=== PATIENT | female | born 1955 | race Caucasian/White ===

== ENCOUNTER 2025-03-28 19:51 | Emergency (ER) | payer MEDICARE, OTHER, SELFPAY ==
--- OUTSIDE RECORDS SUMMARY | 2022-05-19 10:30 | XMS_ITS | Continuity of Care Document ---
Author Organization [facility] Address [address] [place] [address] [address] [place] [address] Phone Care Team Providers Care Grain Operations Manager Name Role Phone Becka Arellano Unavailable Unavailab le Advance Directives Directive Yes / No Effective Date File Name No Information Encounters Encounter Description Practice Location Reason(s) For Visit Diagnoses Date Provider Providers Copied on Encounter [facility], [address], [place], [id number], tel:[phone] [facility] / [facility]ins - (Telangiect ibeth) Bertha Jovel. [address] , [address], [place], [place], [id number], [place]. tel:[phone] Referring Provider: Becka Munson, [address], [place], [address]. tel:[phone] Family History Family Member Type Diagnosis Age At Onset No Information Payers Payer name Insurance type Covered republican ID Authoriza tion(s) No Information Social History Type Description Quantity Date Captured Comments Sex Female Smoking Status No Information Chief Complaint And Reason For Visit No Information Reason For Referral Reason For Referral No Information History Of Present Illness Encounter Date Complaint History Of Prese nt Illness No Information Functional Status Date Functional Assessmen t No Information Instructions Date Instruction Additional Infor mation No Information Assessments Type Assessment Date assessment Spider Veins - (Telangiectasia) Patient Care Teams Name Effective Dates (start - stop) Status Members No Information
--- OUTSIDE RECORDS SUMMARY | 2023-11-16 05:15 | XMS_ITS | Continuity of Care Document ---
Author Organization [facility] o Address [address] [place] [address] Phone Care Team Providers Care Corporate Sales Representative Name Role Phone Noah Ozuna MD Unavailable Unavailable Procedures Procedure Date Initial hospital care, moderate 024 Followup hospital care, moderate 2023 Advance Directives Directive Yes / No Effective Date File Name No Information Encounters Encounter Description Practice Location Reason(s) For Visit Diagnoses Date Provider Providers Copied on Encounter [facility], [facility] [address] [place], [place], [facility][note 3], tel:[phone] No Information Mar-0 4 Laith Zamora. [address], [facility] [place] [address], [place], [id number] , [place]. tel:[phone] Initial hospital care, moderate [facility], [facility] [address] [place], [place], [facility][note 3], tel:[phone] [facility] No Information Nov-0 4 Laith Zamora. [address], [address], [place], [place], [id number] , [place]. tel:[phone] Referring Provider: Deysi Maldonado, [address] [place], [address]. tel:[phone] Family History Family Member Type Diagnosis Age At Onset No Information Payers Payer name Insurance type Covered democrat ID Authoriza tion(s) No Information Social History [...] mation No Information Assessments Type Assessment Date No Information Patient Care Teams Name Effective Dates (start - stop) Status Members No Information
--- OUTSIDE RECORDS SUMMARY | 2025-03-28 19:58 | XMS_ITS | Encounter Summary ---
Author Organization [facility] Address [address] [place] [address] Care Team Providers Care Resident Caregiver Name Role Phone Laurel Laguerre MD Primary Care Provider [phone] Monse Ronquillo NP Unavailable Laurel Laguerre MD Unavailable Laurel Laguerre MD Unavailable Encounter Details Date Type Department Care Team (Late Contact Info) Description 06/10/2023 Abstract [facility] [address] [place] [phone] Laurel Laguerre MD Social History Tobacco Use Types Packs/Day Years Used Date Smoking Tobacco: Never Smokeless Tobacco: Never Alcohol Use Standard Drinks/Week Comments Not Currently 0 (1 standard drink = 0.6 oz pur e alcohol) Comments Unknown Sex and Gender Information Value Date Recorded Sex Assigned at Not on file Legal Sex Female 6:33 PM EDT Gender Identity Not on file Sexual Orientation Not on file documented as of this encounter Plan of Treatment Upcoming Encounters Date Type Department Care Team (Late Contact Info) Description 04/01/2025 1:30 PM EDT [facility] [address] [place] [phone] Monse Ronquillo NP [address] [place] [id number] 08/16/2025 8:30 AM EST Office Visit [facility] [address] [place] [address] Monse Ronquillo NP [address] [place] [id number] documented as of this encounter Visit Diagnoses Not on filedocumented in this encounter Care Teams Resident Caregiver Relationship Specialty Start Date End Date Laurel Laguerre MD PCP - General Family Medicine 01/31/23 Laurel Laguerre MD PCP - ACO Reach 02/03/23 10/18/24 Laurel Laguerre MD PCP - ACO Reach 10/26/24 12/13/24 Monse Ronquillo NP [address] [place] [place] [id number] Nurse Practitioner Family Medicine 01/31/23 documented as of this encounter
--- OUTSIDE RECORDS SUMMARY | 2025-03-28 19:58 | XMS_ITS | Encounter Summary ---
Author Organization [facility] tem Address [id number] [address] [place] [address] Care Team Providers Care Internal Communications Writer Name Role Phone Laurel Laguerre MD Primary Care Provider [phone] Encounter Details Date Type Department Care Team (Late st Contact Info) Description 06/18/2022 Orders Only [facility] [address] [place] [phone] External, Scanning Provider Social History Tobacco Use Types Packs/Day Years Used Date Smoking Tobacco: Never Assessed Childcare Answer Date Recorded Childcare Unknown 02/21/2019 Employment Answer Date Recorded Employment Unknown 02/21/2019 Comments Unknown Sex and Gender Information Value Date Recorded Sex Assigned at Not on file Legal Sex Female 11:34 AM EDT Gender Identity Not on file Sexual Orientation Not on file documented as of this encounter Plan of Treatment Not on file documented as of this encounter Procedures Procedure Name Priority Date/Time Associated Diagnosis Comments LIPID PROFILE Routine 06/14/2022 LIPID PROFILE Routine 09/07/2021 documented in this encounter Results * Lipid profile (06/14/2022) External Cholesterol 216 MANUALLY TRANSCRIBED RESULTS External Cholesterol:Hdl 3.2 MANUALLY TRANSCRIBED RESULTS External Hdl Cholesterol 68 MANUALLY TRANSCRIBED RESULTS External Ldl (Calc) 128 MANUALLY TRANSCRIBED RESULTS External Triglycerides 92 MANUALLY TRANSCRIBED RESULTS Non HDL Chol. (LDL+VLDL) 148 MANUALLY TRANSCRIBED RESULTS 06/14/2022 us Scanning Provider External LAB BLOOD ORDERABLES Final Result Performing Organization Address City/[facility] Co de Phone Number MANUALLY TRANSCRIBED RESULTS * Lipid profile (09/07/2021) External Cholesterol 236 MANUALLY TRANSCRIBED RESULTS External Cholesterol:Hdl 4 MANUALLY TRANSCRIBED RESULTS External Hdl Cholesterol 66 MANUALLY TRANSCRIBED RESULTS External Ldl (Calc) 149 MANUALLY TRANSCRIBED RESULTS External Triglycerides 103 MANUALLY TRANSCRIBED RESULTS External Very Low Lipoprotein 21 MANUALLY TRANSCRIBED RESULTS 09/07/2021 us Scanning Provider External LAB BLOOD ORDERABLES Final Result Performing Organization Address [facility] Co de Phone Number MANUALLY TRANSCRIBED RESULTS documented in this encounter Visit Diagnoses Not on filedocumented in this encounter Care Teams Internal Communications Writer Relationship Specialty Start Date End Date Laurel Laguerre MD [address] [place] [address] PCP - General Family Medicine 10/30/21 documented as of this encounter
--- OUTSIDE RECORDS SUMMARY | 2025-03-28 19:58 | XMS_ITS | Encounter Summary ---
Author Organization [facility] Address [address] [place] [address] Care Team Providers Care Clinical Administrative Coordinator Name Role Phone Laurel Laguerre MD Primary Care Provider Monse Ronquillo NP Unavailable Laurel Laguerre MD Unavailable Laurel Laguerre MD Unavailable Encounter Details Date Type Department Care Team (Late st Contact Info) Description 03/22/2023 Abstract [facility] [address] [place] [address] Laurel Laguerre MD Social History Tobacco Use [...] on file Sexual Orientation Not on file COVID-19 Exposure Response Date Recorded In the last 10 days, have yo u been in contact with someone who was confirmed or suspected to have Coronavirus/COVID-19? No / Unsure 03/01/2023 8:52 AM EDT documented as of this encounter Plan of Treatment Upcoming Encounters Date Type Department Care Team (Late st Contact Info) Description 04/01/2025 1:30 PM EDT Office Visit [facility] [address] [place] [phone] Monse Ronquillo NP [address] [place] [address] 08/16/2025 8:30 AM EST Office Visit [facility] [address] [place] [phone] Monse Ronquillo NP [address] [place] [address] documented as of this encounter Visit Diagnoses Not on filedocumented in this encounter Care Teams Clinical Administrative Coordinator Relationship Specialty Start Date End Date Laurel Laguerre MD PCP - General Family Medicine 01/31/23 Laurel Laguerre MD PCP - ACO Reach 02/03/23 10/18/24 Laurel Laguerre MD PCP - ACO Reach 10/26/24 12/13/24 Monse Ronquillo NP [address] [place] [place] [phone] Nurse Practitioner Family Medicine 01/31/23 documented as of this encounter
--- OUTSIDE RECORDS SUMMARY | 2025-03-28 19:58 | XMS_ITS | Encounter Summary ---
Author Organization [facility] Address [address] [place] [address] Care Team Providers Care Relay Tester Name Role Phone Laurel Laguerre MD Primary Care Provider Monse Ronquillo NP Unavailable Laurel Laguerre MD Unavailable Laurel Laguerre MD Unavailable Encounter Details Date Type Department Care Team (Late st Contact Info) Description 02/24/2023 Abstract [facility] [address] [place] [address] Parul Suero, DPM [address] [place], [place] [phone] Social History Tobacco Use Types Packs/Day Years [...] EDT Office Visit [facility] [address] [place] [phone] Monse Ronquillo NP [address] [place] [address] 08/16/2025 8:30 AM EST Office Visit [facility] [address] [place] [address] Monse Ronquillo NP [address] [place] [address] documented as of this encounter Visit Diagnoses Not on filedocumented in this encounter Care Teams Relay Tester Relationship Specialty Start Date End Date Laurel Laguerre MD PCP - General Family Medicine 01/31/23 Laurel Laguerre MD PCP - ACO Reach 02/03/23 10/18/24 Laurel Laguerre MD PCP - ACO Reach 10/26/24 12/13/24 Monse Ronquillo NP [address] [place] [place] [phone] Nurse Practitioner Family Medicine 01/31/23 documented as of this encounter
--- OUTSIDE RECORDS SUMMARY | 2025-03-28 19:58 | XMS_ITS | Encounter Summary ---
Author Organization [facility] Address [address] [place] [address] Care Team Providers Care Project Analyst Name Role Phone Laurel Laguerre MD Primary Care Provider Monse Ronquillo NP Unavailable Laurel Laguerre MD Unavailable [phone] Laurel Laguerre MD Unavailable Encounter Details Date Type Department Care Team (Late st Contact Info) Description 05/26/2023 Abstract [facility] [address] [place] [address] Lady Ferrera NP Social History Tobacco Use Types Packs/Day Years [...] 04/01/2025 1:30 PM EDT Office Visit [facility] [address] [place] [address] Monse Ronquillo NP [address] [place] [id number] 08/16/2025 8:30 AM EST Office Visit [facility] [address] [place] [address] Monse Ronquillo NP [address] [place] [id number] documented as of this encounter Visit Diagnoses Not on filedocumented in this encounter Care Teams Project Analyst Relationship Specialty Start Date End Date Laurel Laguerre MD PCP - General Family Medicine 01/31/23 Laurel Laguerre MD PCP - ACO Reach 02/03/23 10/18/24 Laurel Laguerre MD PCP - ACO Reach 10/26/24 12/13/24 Monse Ronquillo NP [address] [place] [id number] Nurse Practitioner Family Medicine 01/31/23 documented as of this encounter
--- OUTSIDE RECORDS SUMMARY | 2025-03-28 19:58 | XMS_ITS | Encounter Summary ---
Author Organization [facility] Address [id number] [address] [place] [address] Care Team Providers Care Waitress Name Role Phone Laurel Laguerre MD Primary Care Provider [phone] Encounter Details Date Type Department Care Team (Late st Contact Info) Description 08/09/2022 Orders Only [facility] [address] [place] [address] External, Scanning Provider Social History Tobacco Use Types Packs/Day Years Used Date Smoking Tobacco: Never Smokeless Tobacco: Never Alcohol Use Standard Drinks/Week Comments Not Currently 0 (1 standard drink = 0.6 oz pur e alcohol) Childcare Answer Date Recorded Childcare Unknown 02/21/2019 Employment Answer Date Recorded Employment Unknown 02/21/2019 Comments Unknown Sex and Gender Information Value Date Recorded Sex Assigned at Not on file Legal Sex Female 11:34 AM EDT Gender Identity Not on file Sexual Orientation Not on file COVID-19 Exposure Response Date Recorded In the last month, have you been in contact with someone who was confirmed or suspected to have Coronavirus / COVID-19? No / Unsure 07/26/2022 1:31 PM EST documented as of this encounter Plan of Treatment Not on file documented as of this encounter Visit Diagnoses Not on filedocumented in this encounter Care Teams Waitress Relationship Specialty Start Date End Date Laurel Laguerre MD [address] [place] [address] PCP - General Family Medicine 10/30/21 documented as of this encounter
--- OUTSIDE RECORDS SUMMARY | 2025-03-28 19:58 | XMS_ITS | Encounter Summary ---
Author Organization [facility] Address [address] [place] [address] Care Team Providers Care Shell Worker Name Role Phone Laurel Laguerre MD Primary Care Provider Monse Ronquillo NP Unavailable [phone] Laurel Laguerre MD Unavailable [phone] Laurel Laguerre MD Unavailable [phone] Encounter Details Date Type Department Care Team (Late st Contact Info) Description 11/18/2023 Orders Only [facility] [address] [place] [address] Duran Nicole DO [address] [place] [address] Social History Tobacco Use Types Packs/Day Years Used Date Smoking Tobacco: Never Smokeless Tobacco: Never Alcohol Use Standard Drinks/Week Comments Never 0 (1 standard drink = 0.6 oz pur e alcohol) Humiliation, Afraid, Rape, and Kick questionnair e Answer Date Recorded Within the last year, have y ou been afraid of your partner or ex-partner? No 08/09/2023 Within the last year, have y ou been humiliated or emotionally abused in other ways by your partner or ex-partner? No Within the last year, have y ou been kicked, hit, slapped, or otherwise physically hurt by your partner or ex-partner? No 08/09/2023 Within the last year, have y ou been raped or forced to have any kind of sexual activity by your partner or ex-partner? No 08/09/2023 Social Connection and Isolation Panel [NHANES] A nswer Date Recorded In a typical week, how many times do you talk on the phone with family, friends, or neighbors? Once a week 08/09/2023 How often do you get together with friends or re latives? Once a week 08/09/2023 How often do you attend buddhism or protestant serv ices? Never 08/09/2023 Do you belong to any clubs o r organizations such as buddhism groups, unions, fraternal or athletic groups, or school groups? No 08/09/2023 How often do you attend meet ings of the clubs or organizations you belong to? Never 08/09/2023 Are you , , di vorced, , never , or living with a partner? 08/09/2023 AUDIT-C Answer Date Recorded Q1: How often do you have a drink containing alcohol? Never 08/16/2023 Q2: How many drinks containi ng alcohol do you have on a typical day when you are drinking? Patient does not drink Q3: How often do you have si x or more drinks on one occasion? Never 08/16/2023 Overall Financial Resource Strain (CARDIA) Answe r Date Recorded How hard is it for you to pa y for the very basics like food, housing, medical care, and heating? Not very hard 08/09/2023 PHQ-2 Answer Date Recorded Patient Health Questionnaire-2 Score 1 08/16/2023 [facility] [place] [facility] Occupat ional Health - Occupational Stress Questionnaire Answer Date Recorded Do you feel stress - tense, restless, nervous, or anxious, or unable to sleep at night because your mind is troubled all the time - these days? Not at all 08/09/2023 Exercise Vital Sign Answer Date Recorde d On average, how many days pe r week do you engage in moderate to strenuous exercise (like a brisk walk)? 1 day 08/09/2023 On average, how many minutes do you engage in exercise at this level? 20 min 08/09/2023 Hunger Vital Sign Answer Date Recorded Within the past 12 months, y ou worried that your food would run out before you got the money to buy more. Never true 08/09/20 23 Within the past 12 months, t he food you bought just didn't last and you didn't have money to get more. Never true 08/09/2023 PRAPARE - Transportation Answer Date Re corded In the past 12 months, has l ack of transportation kept you from medical appointments or from getting medications? No 07/14 In the past 12 months, has l ack of transportation kept you from meetings, work, or from getting things needed for daily living? No 08/09/2023 Housing Stability Vital Sign Answer Joe e Recorded In the last 12 months, was t here a time when you were not able to pay the mortgage or rent on time? No 08/09/2023 In the last 12 months, how many places have you lived? 1 08/09/2023 In the last 12 months, was t here a time when you did not have a steady place to sleep or slept in a halfway (including now)? No 08/09/2023 Comments Unknown Sex and Gender Information Value Date Recorded Sex Assigned at Not on file Legal Sex Female 6:33 PM EDT Gender Identity Not on file Sexual Orientation Not on file documented as of this encounter Plan of Treatment Upcoming Encounters Date Type Department Care Team (Late st Contact Info) Description 04/01/2025 1:30 PM EDT Office Visit [facility] [address] [place] [phone] Monse Ronquillo NP [address] [place] [address] 08/16/2025 8:30 AM EST Office Visit [facility] [address] [facility] [place] [address] Monse Ronquillo NP [address] [facility] [place], [place] [phone] documented as of this encounter Procedures Procedure Name Priority Date/Time Associated Diagnosis Comments COLONOSCOPY Routine 10/17/2023 1:19 PM EST documented in this encounter Results * Hm Colonoscopy (10/17/2023 1:19 PM EST) Anatomical Region Laterality Modality Other Duran Nicole DO HEALTH MAINTENANCE Final Resu lt documented in this encounter Visit Diagnoses Not on filedocumented in this encounter Additional Health Concerns Assessment Noted Time PHQ-9 Depression Total Score: 1 08/16/20 1:00 PM EST documented as of this encounter Care Teams Shell Worker Relationship Specialty Start Date End Date Laurel Laguerre MD PCP - General Family Medicine 01/31/23 Laurel Laguerre MD PCP - ACO Reach 02/03/23 10/18/24 Laurel Laguerre MD PCP - ACO Reach 10/26/24 12/13/24 Monse Ronquillo NP [address] [place] [address] Nurse Practitioner Family Medicine 01/31/23 documented as of this encounter
--- OUTSIDE RECORDS SUMMARY | 2025-03-28 19:58 | XMS_ITS | Encounter Summary ---
Author Organization [facility] Address [id number] [address] [place] [address] Care Team Providers Care Window/Distribution Clerk Name Role Phone Laurel Laguerre MD Primary Care Provider [phone] Encounter Details Date Type Department Care Team (Late st Contact Info) Description 07/27/2022 Orders Only [facility] [address] [place] [address] External, Scanning Provider Social History [...] on filedocumented in this encounter Care Teams Window/Distribution Clerk Relationship Specialty Start Date End Date Laurel Laguerre MD [address] [place] [address] PCP - General Family Medicine 10/30/21 documented as of this encounter
--- OUTSIDE RECORDS SUMMARY | 2025-03-28 19:58 | XMS_ITS | Encounter Summary ---
Author Organization [facility] Address [id number] [address] [place] [address] Care Team Providers Care Structural Shop Helper Name Role Phone Laurel Laguerre MD Primary Care Provider [phone] Reason for Visit * Reason Comments Med Refill Encounter Details Date Type Department Care Team (Late st Contact Info) Description 08/12/2022 Refill [facility] [address] [place] [phone] Ronald Mason MD [address] [place] [address] Med Refill Social History Tobacco Use Types Packs/Day Years [...] have Coronavirus / COVID-19? No / Unsure 08/13/2022 9:15 AM EST documented as of this encounter Miscellaneous Notes * Telephone Encounter - Marthanna Wiezorek, RN - 08/12/2022 1:08 PM EST Med was refilled 07/21/22 documented in this encounter Plan of Treatment Not on file documented as of this encounter Visit Diagnoses Not on filedocumented in this encounter Care Teams Structural Shop Helper Relationship Specialty Start Date End Date Laurel Laguerre MD [address] [place] [address] PCP - General Family Medicine 10/30/21 documented as of this encounter
--- OUTSIDE RECORDS SUMMARY | 2025-03-28 19:58 | XMS_ITS | Encounter Summary ---
Author Organization [facility] Address [address] [place] [address] Care Team Providers Care Rn Intern Name Role Phone Laurel Laguerre MD Primary Care Provider Monse Ronquillo NP Unavailable Laurel Laguerre MD Unavailable Laurel Laguerre MD Unavailable [phone] Reason for Visit * Reason Comments Med Refill Encounter Details Date Type Department Care Team (Late st Contact Info) Description 07/13/2023 Refill [facility] [address] [facility] [place] [address] Laurel Laguerre MD Depression, unspecified depression type Social History Tobacco Use Types Packs/Day Years [...] on file documented as of this encounter Miscellaneous Notes * Telephone Encounter - Abiola Syed - 07/14/2023 12:14 PM EDT Placed call to pt, appt scheduled. * Telephone Encounter - Surekha Dennis MA - 07/13/2023 5:14 PM EDT RX sent. Abiola could you please call to schedule pt. Thank you. documented in this encounter Plan of Treatment Upcoming Encounters Date Type Department Care Team (Late st Contact Info) Description 04/01/2025 1:30 PM EDT Office Visit [facility] [address] [place] [address] Monse Ronquillo NP [address] [place] [address] 08/16/2025 8:30 AM EST Office Visit [facility] [address] [place] [address] Monse Ronquillo NP [address] [place] [address] documented as of this encounter Visit Diagnoses Diagnosis Depression, unspecified depression type documented in this encounter Care Teams Rn Intern Relationship Specialty Start Date End Date Laurel Laguerre MD PCP - General Family Medicine 01/31/23 Laurel Laguerre MD PCP - ACO Reach 02/03/23 10/18/24 Laurel Laguerre MD PCP - ACO Reach 10/26/24 12/13/24 Monse Ronquillo NP [address] [place] [address] Nurse Practitioner Family Medicine 01/31/23 documented as of this encounter
--- OUTSIDE RECORDS SUMMARY | 2025-03-28 19:58 | XMS_ITS | Encounter Summary ---
Author Organization [facility] [employer] Address [id number] [address] [place] [address] Care Team Providers Care Research Associate Molecular Biology Name Role Phone Laurel Laguerre MD Primary Care Provider [phone] Encounter Details Date Type Department Care Team (Late st Contact Info) Description 07/22/2022 Orders Only [facility] [address] [place] [address] External, Scanning Provider Social History [...] have Coronavirus / COVID-19? No / Unsure 07/21/2022 9:10 AM EST documented as of this encounter Plan of Treatment Not on file documented as of this encounter Procedures Procedure Name Priority Date/Time Associated Diagnosis Comments ECG 12-LEAD Routine 07/15/2022 documented in this encounter Results * ECG 12 lead (07/15/2022) us Scanning Provider External ECG ORDERABLES Final Result MANUALLY TRANSCRIBED RESULTS documented in this encounter Visit Diagnoses Not on filedocumented in this encounter Care Teams Research Associate Molecular Biology Relationship Specialty Start Date End Date Carlotta, Laurel Chu MD [address] [place] [address] PCP - General Family Medicine 10/30/21 documented as of this encounter
--- OUTSIDE RECORDS SUMMARY | 2025-03-28 19:59 | XMS_ITS | Encounter Summary ---
Author Organization [facility] Address [address] [place] [address] Care Team Providers Care Lathe Turner Name Role Phone Laurel Laguerre MD Primary Care Provider [phone] Monse Ronuqillo SUSTAINABLE AGRICULTURE FACULTY Unavailable Encounter Details Date Type Department Care Team (Late st Contact Info) Description 03/17/2025 Abstract [facility] [address] [place] [address] Laurel Laguerre MD Social History Tobacco Use Types Packs/Day Years Used Date Smoking Tobacco: Never Passive Smoke Exposure: Past Smokeless Tobacco: Never Alcohol Use Standard Drinks/Week [...] week 08/09/2023 How often do you attend denominational or scientology serv ices? Never 08/09/2023 Do you belong to any clubs o r organizations such as denominational groups, unions, fraternal or athletic groups, or [...] Answer Date Recorded Patient Health Questionnaire-2 Score 0 08/15/2024 [facility] of Occupat ional Health - Occupational Stress [...] money to buy more. Never true 08/09/20 Within the past 12 months, t he [...] place to sleep or slept in a long term (including now)? No 08/09/2023 Comments Unknown Sex [...] PM EDT Office Visit [facility] [address] [facility] [place] [id number] Monse Ronquillo NP [address] [facility] [place] [address] 08/16/2025 8:30 AM EST Office Visit [facility] [address] [facility] [place] [phone] Monse Ronquillo NP [address] [facility] [place], [place] [id number] documented as of this encounter Visit Diagnoses Not on filedocumented in this encounter Additional Health Concerns Assessment Noted Time PHQ-9 Depression Total Score: 1 08/16/20 23 1:00 PM EST documented as of this encounter Care Teams Lathe Turner Relationship Specialty Start Date End Date Wonderly, Laurel Chu MD PCP - General Family Medicine 01/31/23 Monse Ronquillo NP [address] [place] [address] Nurse Practitioner Family Medicine 01/31/23 documented as of this encounter
--- OUTSIDE RECORDS SUMMARY | 2025-03-28 19:59 | XMS_ITS | Clinical Summary ---
Author Organization [facility] Address [address] [place] [address] Care Team Providers Care Burlap Worker Name Role Phone Laurel Laguerre MD Primary Care Provider [phone] Monse Ronquillo TRAIN OPERATOR Unavailable [phone] Allergies No known active allergies Medications metoprolol succinate XL (Toprol-XL) 25 MG 24 hr tablet Take 25 mg by mouth in the morning. Do not crush or chew. . Active Cholecalciferol (Vitamin D3 Gummies) 25 MCG (1000 UT) chewable tablet Chew 2,000 Units 1 (one) time each day Active Multiple Vitamin (multivitamin) tablet Take 1 tablet by mouth in the morning. Active [place]-3 Fatty Acids (Fish Oil) 1000 MG capsule delayed-release Take 1 capsule by mouth 1 (one) time each day. Active acetaminophen (Tylenol) 325 MG tablet Take 325 mg by mouth Daily as needed for mild pain. Active glucosamine-chondro itin 500-400 MG tablet Take 1 tablet by mouth 1 (one) time each day. Active ascorbic acid (Vitamin C) 500 MG ER capsule Take 500 mg by mouth in the morning. Active ELDERBERRY PO Take by mouth Active sertraline (Zoloft) 50 MG tabletIndications:D epression, unspecified depression type TAKE 1 TABLET (50 MG) BY MOUTH IN THE MORNING FOR 270 DOSES. 90 tablet 2 4 05/11/20 25 Active amLODIPine (Norvasc) 5 MG tabletIndications:E ssential hypertension TAKE 1 TABLET BY MOUTH EVERY DAY 90 tablet 3 5 Active meloxicam (Mobic) 15 MG tabletIndications:O steoarthritis, unspecified osteoarthritis type, unspecified site TAKE 1 TABLET BY MOUTH EVERY DAY 30 tablet 3 5 Active Active Problems Problem Noted Date Diagnosed Date Anxiety 01/31/2023 DDD (degenerative disc disease), lumbar 02/01/20 23 Depression 01/31/2023 Essential hypertension 01/31/2023 History of repair of hip joint 01/31/2023 Overview (08/16/2023): Bilateral hip replacements Hyperlipidemia 01/31/2023 Idiopathic scoliosis 01/31/2023 Palpitations 08/27/2022 Resolved Problems Problem Noted Date Diagnosed Date Resolved Date Irregular heart beat 01/31/2023 024 Primary osteoarthritis of right hip 01/31/2023 08/15/2024 Encounters Date Type Department Care Team Description 03/27/2025 Telephone [facility] [address] [facility] [place] [address] Laurel Laguerre MD 03/17/2025 Abstract [facility] [address] [place] [address] Laurel Laguerre MD from Last 3 Months Immunizations Immunization Administration Dates Next Due DTP 11/09/2006,10/13/2006 Tdap 12/29/2017 Family History Medical History Relation Name Comments Diabetes Brother 1 Reinaldo Cancer Brother 2 Wilbert Cancer Father Edgardo Heart disease Father Edgardo Hypertension Father Edgardo Arthritis Mother Jyotsna Hypertension Mother Jyotsna Stroke Mother Jyotsna Hypertension Other brother Prostate cancer Other brother Hypothyroidism Sister Relation Name Status Comments Brother 1 Reinaldo Brother 2 Wilbert Father Edgardo Mother Jyotsna Other brother Sister Social History Tobacco Use Types Packs/Day Years [...] week 08/09/2023 How often do you attend faith or mosque serv ices? Never 08/09/2023 Do you belong to any clubs o r organizations such as faith groups, unions, fraternal or athletic groups, or [...] Recorded Patient Health Questionnaire-2 Score 0 08/15/2024 [facility] of Occupat ional Health - Occupational Stress [...] on file Sexual Orientation Not on file Last Filed Vital Signs Vital Sign Reading Time Taken Comments Blood Pressure 136/80 08/15/2024 9:13 AM EST Pulse 68 08/15/2024 8:41 AM EST Temperature 36.8 C (98.2 F) 12/21/2023 9:59 AM EDT Respiratory Rate - - Oxygen Saturation 95% 12/21/2023 9:59 AM EDT Inhaled Oxygen Concentration - - Weight 90.1 kg (198 lb 9.6 oz) 08/15/2024 8:41 A M EST Height 169.5 cm (5' 6.75 ) 08/15/2024 8:41 AM ES T Body Mass Index 31.34 08/15/2024 8:41 AM EST Plan of Treatment Upcoming Encounters Date Type Department Care Team (Late st Contact Info) Description 04/01/2025 1:30 PM EDT Office Visit [facility] [address] [facility] [place] [phone] Monse Ronquillo NP [address] [facility] [place] [address] 08/16/2025 8:30 AM EST Office Visit [facility] [address] [facility] [place] [address] Monse Ronquillo NP [address] [facility] [place] [address] [place] [address] MEDICARE [employer] Care Teams Burlap Worker Relationship Specialty Start Date End Date Laurel Laguerre MD PCP - General Family Medicine 01/31/23 Monse Ronquillo NP [address] [place] [address] Nurse Practitioner Family Medicine 01/31/23
--- OUTSIDE RECORDS SUMMARY | 2025-03-28 19:59 | XMS_ITS | Clinical Summary ---
Author Organization [employer] Address [id number] [address] [place] [address] Care Team Providers Care Panel Assembler Name Role Phone Laurel Laguerre MD Primary Care Provider [phone] Allergies No known active allergies Medications sertraline (ZOLOFT) 50 mg tablet Take 1 tablet (50 mg total) by mouth in the morning. 06/14/2022 Active meloxicam (MOBIC) 15 mg tablet Take 1 tablet (15 mg total) by mouth in the morning. 04/20/2022 Active UNABLE TO FIND Take by mouth daily. Vitamin D3 gummie Active omega 2-ejz-ote-fish oil 1,000 mg (250 mg-750 mg)/5 mL liquid Take 1,000 mg by mouth daily. Active multivitamin capsule Take by mouth daily. Active ascorbic acid (VITAMIN C ORAL) Take 282 mg by mouth daily. Active ELDERBERRY FRUIT ORAL Take by mouth daily. Immune support Active amLODIPine (NORVASC) 5 mg tablet Take 1 tablet (5 mg total) by mouth in the morning. Active acetaminophen (TYLENOL) 325 mg tablet Take 2 tablets (650 mg total) by mouth every 6 (six) hours as needed for pain. Active glucosamine-cho ndroitin 500-400 mg tablet Take 2 tablets by mouth in the morning. Active metoprolol succinate XL (TOPROL XL) 50 mg 24 hr tabletIndicatio ns:Palpitations Take 1 tablet (50 mg total) by mouth in the morning. 90 tablet 3 11/22/2024 Active Active Problems Problem Noted Date Diagnosed Date Preop cardiovascular exam 08/27/2022 Palpitations 08/27/2022 Family History Medical History Relation Name Comments Diabetes Brother 1 Reinaldo Prostate cancer Brother 2 Wilbert Heart disease Father Edgardo Hypertension Father Edgardo Arthritis Mother Jyotsna Hypertension Mother Jyotsna Stroke Mother Jyotsna Breast cancer Sister Aarti Relation Name Status Comments Brother 1 Reinaldo Brother 2 Wilbert Father Edgardo Mother Jyotsna Sister Aarti Social History Tobacco Use Types Packs/Day Years Used Date Smoking Tobacco: Never Smokeless Tobacco: Never Tobacco Cessation:Counseling Given: Not Answered Alcohol Use Standard Drinks/Week Comments Never 0 (1 standard drink = 0.6 oz pur e alcohol) Childcare Answer Date Recorded Childcare Unknown 02/21/2019 Employment Answer Date Recorded Employment Unknown 02/21/2019 Hunger Screening Answer Date Recorded Within the past 12 months we worried whether our food would run out before we got money to buy more. Never True 10/13/2023 Within the past 12 months th e food we bought just didn't last and we didn't have money to get more. Never True 10/13/2023 Comments No Sex and Gender Information Value Date Recorded Sex Assigned at Not on file Legal Sex Female 11:34 AM EDT Gender Identity Not on file Sexual Orientation Not on file Last Filed Vital Signs Vital Sign Reading Time Taken Comments Blood Pressure 138/80 11/22/2024 9:06 AM EDT Pulse 64 11/22/2024 9:06 AM EDT Temperature 36.4 C (97.5 F) 10/17/2023 10:15 AM EST Respiratory Rate 16 10/17/2023 11:50 AM EST Oxygen Saturation 96% 11/22/2024 9:06 AM EDT Inhaled Oxygen Concentration - - Weight 90.3 kg (199 lb) 11/22/2024 9:06 AM EDT Height 170.2 cm (5' 7 ) 11/22/2024 9:06 AM EDT Body Mass Index 31.17 11/22/2024 9:06 AM EDT Plan of Treatment Health Maintenance Due Date Last Done Comments Depression Screening 1967 Adult BMI Follow Up Plan 1973 Zoster (Shingles) Vaccine (1 of 2) 2005 Fall Risk Screening 2020 Influenza Vaccine 05/13/2025 Adult BMI Screening 11/22/2025 11/22/2024 Tobacco Screening 11/22/2025 11/22/2024 DTaP,Tdap and Td Vaccines (4 - Td or Tdap) 12/30/2027 12/29/2017, 11/09/2006, 10/13/2006 Colonoscopy 10/17/2028 10/17/2023, 10/17/2023 Medical Devices Not on file Procedures Procedure Name Priority Date/Time Associated Diagnosis Comments PROVATION COLONOSCOPY Routine 10/17/2023 10:22 AM EST from Last 3 Months or Most Recently Relevant to Health Maintenance Results * Colonoscopy Report (10/17/2023 10:22 AM EST) Narrative SYSTEMGENERATED, DOCUMENTATION - 10/17/2023 10:22 AM EST This order has been auto-finalized for image and report archival in PACs. *For full report details, please reach out to your physician. This image is visible to you in MyChart.* us Duran Nicole DO IMG OR IMG ORDERABLES Final Result from Last 3 Months or Most Recently Relevant to Health [place] [address] MEDICARE [facility] LIFE INSURANCE Care Teams Panel Assembler Relationship Specialty Start Date End Date Laurel Laguerre MD [address] [place] [address] PCP - General Family Medicine 10/30/21
--- OUTSIDE RECORDS SUMMARY | 2025-03-28 19:59 | XMS_ITS | Encounter Summary ---
Author Organization [facility] Address [address] [place] [address] Care Team Providers Care Thermometer Production Worker Name Role Phone Laurel Laguerre MD Primary Care Provider [phone] Monse Ronquillo FISH FARM LABORER Unavailable [phone] Encounter Details Date Type Department Care Team (Late st Contact Info) Description 03/27/2025 Telephone [facility] [address] [place] [address] Laurel Laguerre MD Social History [...] week 08/09/2023 How often do you attend zoroastrianism or judaism serv ices? Never 08/09/2023 Do you belong to any clubs o r organizations such as zoroastrianism groups, unions, fraternal or athletic groups, or [...] Recorded Patient Health Questionnaire-2 Score 0 08/15/2024 [facility] of Occupat ional Health - Occupational Stress [...] place to sleep or slept in a mcfp (including now)? No 08/09/2023 Comments Unknown Sex and Gender Information Value Date Recorded Sex Assigned at Not on file Legal Sex Female 6:33 PM EDT Gender Identity Not on file Sexual Orientation Not on file documented as of this encounter Miscellaneous Notes * Telephone Encounter - ESTELA HARPER - 03/27/2025 1:11 PM EDT Spoke with patient, appt scheduled with [place] 04/04/25. Pt will let us know if getting worse or not any better and if she needs seen sooner than the . * Telephone Encounter - ESTELA HARPER - 03/27/2025 11:39 AM EDT Pt went to urgent care today in [place] for a rash. UC was unsure what the rash was and recommended she follow up with PCP. They did draw a council around the area so next provider that saw pt could tell if it has increased or decreased. Pt was put on doxycycline 100mg twice a day for 7 days. How soon should pt be seen? No openings with [facility] this week other than 2 same day visits. documented in this encounter Plan of Treatment Upcoming Encounters Date Type Department Care Team (Late st Contact Info) Description 04/01/2025 1:30 PM EDT Office Visit [facility] [address] [facility] [place] [place] [phone] Monse Ronquillo NP [address] [facility] [place] [address] 08/16/2025 8:30 AM EST Office Visit [facility] [address] [facility] [place] [phone] Monse Ronquillo NP [address] [facility] [place] [address] documented as of this encounter Visit Diagnoses Not on filedocumented in this encounter Additional Health Concerns Assessment Noted Time PHQ-9 Depression Total Score: 1 08/16/20 23 1:00 PM EST documented as of this encounter Care Teams Thermometer Production Worker Relationship Specialty Start Date End Date Laurel Laguerre MD PCP - General Family Medicine 01/31/23 Monse Ronquillo NP [address] [facility] [place], [place] [id number] Nurse Practitioner Family Medicine 01/31/23 documented as of this encounter
[2025-03-28 20:04] VITALS: PULSE 67; TEMP 37.1; O2SAT 97; BMI 31.3
--- NOTE | 2025-03-28 20:10 | PC.NURSE ---
Redness to left ankle area, no open areas.
--- NOTE | 2025-03-28 21:18 | ED_ITS ---
HPI HPI - General Adult General Chief complaint: Skin/Abscess/Foreign Body Stated complaint: RASH Time Seen by Provider: 03/28/25 21:10 Mode of arrival: walk-in History of Present Illness HPI narrative: The patient is a 69-year-old female who presents to the emergency department today for evaluation of concerns for a rash to her left lower leg. She endorses yesterday she woke up with a rash to anterior aspect of her left lower leg just above her ankle. She reports it is not pruritic. She does endorse the skin to be somewhat raised and bumpy. She mentions over the past few days she has noted a petechial-like rash to both of her lower extremities. She denies any bruising. She is not on any antiplatelet or anticoagulant medications otherwise. Related Data Home Medications ?Medication ?Instructions ?Recorded ?Confirmed amlodipine 5 mg tablet 5 mg PO DAILY 03/28/2503/28 doxycycline hyclate 100 mg capsule 100 mg PO Q12H 03/1203/28/25 meloxicam 15 mg tablet 15 mg PO DAILY 03/28/2503/12 metoprolol succinate 50 mg 50 mg PO DAILY 03/28/25 tablet,extended release 24 hr sertraline 50 mg tablet 50 mg PO Q24H 03/28/2503/28 Previous Rx's ?Medication ?Instructions ?Recorded triamcinolone acetonide 0.1 % 1 applic topical BID #15 grams 03/28/25 topical cream Allergies Allergy/AdvReac Type Severity Reaction Status Date / Time No Known Drug Allergies Allergy Verified 03/28/25 20:04 Review of Systems ROS Status of ROS 10 or more systems reviewed and unremark able except as noted in history and below PFSH PFSH Social History Little interest or pleasure in doing things: not at all Feeling down, depressed, or hopeless: not at all Exam Narrative Exam Narrative: Constituational: Awake/ alert, no apparent distress, well hydrated HENMT: normocephalic, external ears normal, moist oral mucous membranes and oropharynx normal Eyes: EOMI and conjunctivae normal Neck: ROM intact Chest: inspection of chest normal Respiratory: Normal respiratory effort MSK: ROM intact, +NVI Skin: + Erythematic patch to cheerier aspect of the distal L lower leg that is raised and bumpy to touch and nonblanchable. No drainage. + Punctate petechial like rash to B/L LE Neuro: no focal deficits Psych: mental status grossly normal Constitutional Vital Signs, click to edit/add: Last Vital Signs Temp 98.7 F 03/28/25 20:04 Pulse 67 03/28/25 20:04 Resp 20 03/28/25 20:04 Pulse Ox 97 03/28/25 20:04 O2 Del Method Room Air 03/28/25 20:04 Course Vital Signs Vital signs: Vital Signs Temperature 98.7 F 03/28/25 20:04 Pulse Rate 67 03/28/25 20:04 Respiratory Rate 20 03/28/25 20:04 Pulse Oximetry 97 03/28/25 20:04 Oxygen Delivery Method Room Air 03/28/25 20:04 Temperature 98.7 F 03/28/25 20:04 Pulse Rate 67 03/28/25 20:04 Respiratory Rate 20 03/28/25 20:04 Pulse Oximetry 97 03/28/25 20:04 Oxygen Delivery Method Room Air 03/28/25 20:04 Medical Decision Making [facility] Narrative Medical decision making narrative: The patient is a well-appearing 69-year-old female who presented to the emergency department today for evaluation concerns for a rash to the left leg. Initial examination patient with clinical evidence consistent with likely venous stasis dermatitis. No evidence of cellulitis or abscess present. Historically patient was prescribed doxycycline at an urgent care yesterday and she reports no improvement. Historically no fevers or sick symptoms. She is not diabetic. Additionally concerned that there is a punctate petechial-like rash to both of her lower extremities. Labs stable as below. No thrombocytopenia. Elevated CRP. Discussed these findings with the patient including recommendations for supportive care of likely venous stasis dermatitis. Will discharge home with triamcinolone and recommendations for compressive therapy. Advised on follow-up with patient's primary care provider for reevaluation. Discussed signs and symptoms of any worsening condition and when to consider reevaluation by the emergency department. Patient verbalized an understanding of this and is agreeable with the plan to be discharged home. Medical Records Medical records reviewed: Yes I reviewed the patient's medical records Lab Data Lab results reviewed: Yes I reviewed the patient's lab results Labs: Lab Results 03/28/25 Range/Units 21:25 WBC 7.3 (4.0-11.0) 10^3/uL RBC 4.43 (4.20-5.40) 10^6/uL Hgb 13.6 (12.0-16.0) g/dL Hct 41.2 (36.0-48.0) % MCV 93.0 (81.0-99.0) fL MCH 30.7 (26.7-34.0) pg MCHC 33.0 (29.9-35.2) g/dL RDW 14.0 (11.0-15.0) % Plt Count 175 (150-450) 10^3/uL MPV 9.8 (9.5-13.5) fL Neut % (Auto) 65.4 (43.0-75.0) % Lymph % (Auto) 22.1 (20.5-60.0) % [place] % (Auto) 9.2 (1.7-12.0) % Eos % (Auto) 2.2 (0.9-7.0) % Baso % (Auto) 0.7 (0.2-2.0) % Neut # (Auto) 4.7 (1.4-6.5) 10^3/uL Lymph # (Auto) 1.6 (1.2-3.8) 10^3/uL [place] # (Auto) 0.7 (0.3-0.8) 10^3/uL Eos # (Auto) 0.2 (0.0-0.7) 10^3/uL Baso # (Auto) 0.1 (0.0-0.1) 10^3/uL Abs Immat Gran (auto) 0.03 (0.00-0.03) 10^3/uL Imm/Tot Granulo (auto) 0.4 (0.0-0.5) % Sodium 142 (136-145) mmol/L Potassium 4.1 (3.5-5.1) mmol/L Chloride 106 (98-107) mmol/L Carbon Dioxide 30.5 (21.0-32.0) mmol/L Anion Gap 9.6 BUN 27.0 H (7.0-18.0) mg/dL Creatinine 0.86 (0.55-1.02) mg/dL Est GFR ( Amer) >60 (>=60 mL/min/1.73m^2) Est GFR (Non-Af Amer) >60 (>=60 mL/min/1.73m^2) BUN/Creatinine Ratio 31.4 Glucose 101 (74-106) mg/dL Calcium 9.6 (8.5-10.1) mg/dL Total Bilirubin 0.6 (0.2-1.0) mg/dL AST 19 (15-37) U/L ALT 31 (14-59) U/L Alkaline Phosphatase 120 H (46-116) U/L C-Reactive Protein 3.60 H (<=0.50) mg/dL Total Protein 7.7 (6.4-8.2) g/dL Albumin 3.6 (3.4-5.0) g/dL Globulin 4.1 g/dL Albumin/Globulin Ratio 0.9 Discharge Plan Discharge Chief Complaint: Skin/Abscess/Foreign Body Clinical Impression: Acute venous stasis dermatitis Patient Disposition: Home, Self-Care Prescriptions / Home Meds: New triamcinolone acetonide 0.1 % cream 1 applic topical BID Qty: 15 0RF No Action amlodipine 5 mg tablet 5 mg PO DAILY doxycycline hyclate 100 mg capsule 100 mg PO Q12H meloxicam 15 mg tablet 15 mg PO DAILY metoprolol succinate 50 mg tablet extended release 24 hr 50 mg PO DAILY sertraline 50 mg tablet 50 mg PO Q24H Print Language: Botswanan Instructions: Venous Insufficiency (DC) Additional Instructions: May wear light compression and apply triamcinolone as prescribed. Please up with your primary care provider for reevaluation as discussed. Referrals: Physician,Non-Staff, [Primary Care Provider] - 1 week Discharge Date/Time: 03/28/25 22:18
[2025-03-28 21:36] LABS: Hematocrit 41.2 % (36.0-48.0); Hemoglobin 13.6 g/dL (12.0-16.0); Immature Granulocytes Abs Auto 0.03 10^3/uL (0.00-0.03); Immature Granulocytes Pct Auto 0.4 % (0.0-0.5); Lymphocytes Absolute Auto 1.6 10^3/uL (1.2-3.8); Mean Corpuscular HGB Conc 33.0 g/dL (29.9-35.2); Mean Corpuscular Hemoglobin 30.7 pg (26.7-34.0); Mean Corpuscular Volume 93.0 fL (81.0-99.0); Platelet Count 175 10^3/uL (150-450); Red Blood Count 4.43 10^6/uL (4.20-5.40); White Blood Count 7.3 10^3/uL (4.0-11.0)
[2025-03-28 21:53] LABS: Alanine Aminotransferase 31 U/L (14-59); Albumin Globulin Ratio 0.9; Albumin Level 3.6 g/dL (3.4-5.0); Alkaline Phosphatase 120 U/L (46-116); Anion Gap 9.6; Aspartate Amino Transferase 19 U/L (15-37); Blood Urea Nitrogen 27.0 mg/dL (7.0-18.0); Calcium 9.6 mg/dL (8.5-10.1); Carbon Dioxide 30.5 mmol/L (21.0-32.0); Chloride 106 mmol/L (98-107); Estimated GFR (African America >60 (>=60 mL/min/1.73m^2); Estimated GFR (Non-African Ame >60 (>=60 mL/min/1.73m^2); Globulin 4.1 g/dL; Glucose 101 mg/dL (74-106); Potassium 4.1 mmol/L (3.5-5.1); Sodium 142 mmol/L (136-145); Total Protein 7.7 g/dL (6.4-8.2)
== END 2025-03-28 22:18 | disposition home or self-care (01) ==
PROVIDERS: Nurse Practitioner; Emergency Provider Internal Medicine
DX: I87.2 Venous insufficiency (chronic) (peripheral) (principal)
CPT/HCPCS: 36415; 80053; 85025; 86140; 99283